=== PATIENT | male | born 1995 | race Asian ===

== ENCOUNTER 2017-03-24 03:20 | Emergency (ER) | payer OTHER ==
[~2017-03-24] VITALS: Ht 171.5 cm; Wt 56.5 kg
[2017-03-24 03:30] VITALS: Ht 171.5 cm; Wt 56.5 kg
[2017-03-24] MEDS ORDERED: ACETAMINOPHEN 500 MG TAB PO STA (03:36)
[2017-03-24] MEDS ORDERED: IBUPROFEN 800 MG TAB PO STA (03:36)
[2017-03-24 04:18] LABS: INFLUENZA B ANTIGEN Neg for Influ B (NEG)
--- NOTE | 2017-03-24 04:33 | EMERGENCY ROOM VISIT NOTE ---
History First contact with patient: 03:35 Chief Complaint: FEVER Stated Complaint: HEADACHE HIGH TEMP History of Present Illness The patient is a 21 year old male who presents to the Emergency Room with complaints of fever, chills, body aches and pains and headache for the past 2 days. Patient returned from [place] March 08. He did not receive his flu vaccine. He's been taking [place] herbal medicines. No Tylenol or Motrin. Patient denies chest pain, dyspnea, cough, sore throat, neck stiffness, abdominal pain, vomiting, diarrhea. He is tolerated by mouth fluids and food. Review of Systems See HPI for pertinent positives & negatives. A total of 10 systems reviewed and were otherwise negative. Past Medical/Surgical History None Social History Smoking Status: Current Every Day Smoker Alcohol Use: occasionally Drug Use: none Occupation Status: [employer] student Current/Historical Medications No Active Prescriptions or Reported Meds Physical Exam Vital Signs Date Time Temp Pulse Resp B/P (MAP) Pulse Ox O2 Delivery O2 Flow Rate FiO2 03/24/17 03:30 39.0 129 20 138/84 96 Room Air Physical Exam VITALS: Vitals are noted on the nurse's note and reviewed by myself. Vital signs febrile GENERAL: Pleasant male, in no acute distress, nondiaphoretic, well-developed well-nourished. SKIN: The skin was without rashes, erythema, edema, or bruising. There is no tenting of the skin. Capillary reflex less than 2 seconds. HEAD: Normocephalic atraumatic. EARS: External auditory canals clear, tympanic membranes pearly rivera without erythema or effusion bilaterally. EYES: Pupils equal round and reactive to light and accommodation. Conjunctivae without injection, sclerae without icterus. Extraocular movements intact. NOSE: Patent, turbinates without inflammation or discharge. No sinus tenderness. MOUTH: Mucous membranes mildly dry. Pharynx without erythema or exudate. Uvula midline. Airway patent. Tongue does not deviate. NECK: Supple without nuchal rigidity. No lymphadenopathy. No thyromegaly. Cervical spine is nontender. No JVD. No meningeal signs HEART: Regular rate and rhythm without murmurs gallops or rubs. LUNGS: Clear to auscultation bilaterally without wheezes, rales or rhonchi. No dullness to percussion. No retractions or accessory muscle use. ABDOMEN: Positive bowel sounds x 4. Normal tympanic percussion. Soft, nontender, without masses or organomegaly. Tomlin sign negative. No guarding or rebound tenderness. MUSCULOSKELETAL: No muscle atrophy, erythema, or edema noted. NEURO: Patient was alert and oriented to person place and time. Normal sensation to light and sharp touch. No focal neurological deficits. Medical Decision & Procedures Laboratory Results Test 03/24/17 03:48 Influenza Type A Antigen Neg for Influ A (NEG) Influenza Type B Antigen Neg for Influ B (NEG) Medications Administered Medications (Trade) Dose Ordered Sig/Joanne Route Start Time Stop Time Status Last Admin Dose Admin Acetaminophen (Tylenol Tab) 1,000 mg NOW STAT PO 03/24/17 03:36 03/24/17 03:37 DC 03/24/17 03:52 1,000 MG Ibuprofen (Motrin Tab) 800 mg NOW STAT PO 03/24/17 03:36 03/24/17 03:37 DC 03/24/17 03:52 800 MG ED Course Prior records/ancillary studies reviewed. Triage Nursing notes reviewed. The patient's history was concerning for fever. Differential diagnosis: Etiologies such as viral syndrome, otitis, pharyngitis, pneumonia, influenza, meningitis, urinary tract infection, sepsis, bacteremia, as well as others were entertained. Physical examination: Patient is alert and tolerating fluids ER treatment provided: Tylenol, Motrin, Gatorade On reassessment the patient felt better. Diagnostics interpreted by me: neg influenza and Strep This appears to be consistent with influenza like illness. Patient was neurovascularly and neurologically intact. He felt better after he was medicated as above. He is advised to rest, stay well-hydrated and take medications as directed. He is advised to follow-up health services in a few days or here in the ER sooner for high fevers, lethargy, neck stiffness, worsening signs or symptoms or as needed. Patient had no signs of meningitis. He was advised to stay at home until he is 24 hours fever free as he is contagious. He was encouraged to quit smoking.. By the evaluation outlined above emergent etiologies such as otitis, pharyngitis, pneumonia, meningitis, urinary tract infection, sepsis, bacteremia, as well as others were deemed relatively unlikely. The pt informed about the findings as listed above. All questions were answered and pleased with the treatment. Return instructions were outlined and the patient was discharged in stable condition. Referral: The patient was referred back to their primary care physician/[facility] for follow-up in 2 to 3 days for a recheck of the current condition. Medical Decision As above Medication Reconcilliation Current Medication List: was personally reviewed by me Blood Pressure Screening Patient's blood pressure: Normal blood pressure Impression Primary Impression: Influenza Departure Information Dispostion Home / Self-Care Condition GOOD Prescriptions No Active Prescriptions or Reported Meds Referrals [facility] (PCP) Patient Instructions My [facility] Additional Instructions Acetaminophen(Tylenol) may be used for fever or pain. Use 1000mg every six hours as needed. Avoid using more than 3000mg in a 24 hour period. (AND/OR) Ibuprofen(Motrin, Advil) may be used for fever or pain. Use 600mg every six hours as needed. Take with food. Avoid using more than 2400mg in a 24 hour period. Do not use 2400mg per day for more than three consecutive days without physician direction. Prolonged inappropriate use can lead to stomach upset or ulcers. Afrin nasal spray: 2-3 sprays to each nostril twice daily as needed for congestion. Do not use for more than 3-4 days because it can lead to worsening rebound congestion. Pseudoephedrine(Sudaphed): 30-60mg every 6 hours as needed for nasal congestion. Do not take this with other stimulant products or supplements. Rest and drink plenty of fluids. Controlling your fever with Tylenol and Ibuprofen as above will make you feel better. Wash your hands after nose blowing, sneezing, or coughing. Most germs are spread through contact, therefore improper hygiene may result in your close contacts and loved ones becoming ill just like you. Continue current medications. Return to the ER for severe headache, neck stiffness, chest pain, difficulty breathing, fevers, vomiting, worsening of your condition, or as needed. Follow up with your primary physician this week for a recheck of your current condition.
[2017-03-24 05:02] VITALS: BP 134/81; PULSE 97; TEMP 38.6; O2SAT 99
== END 2017-03-24 05:03 | disposition home or self-care (01) ==
LOC: C.EDB 03:24 → C.EDA 05:03
DX: J11.1 Influenza due to unidentified influenza virus with other respiratory manifestations (principal); F17.200 Nicotine dependence, unspecified, uncomplicated

== ENCOUNTER 2017-06-19 08:38 | Emergency (ER) | payer OTHER ==
[2017-06-19 08:48] VITALS: TEMP 36.4
--- NOTE | 2017-06-19 11:47 | EMERGENCY ROOM VISIT NOTE ---
History First contact with patient: 09:03 Chief Complaint: HIV TESTING Stated Complaint: HIV BLOOD TEST Nursing Triage Summary: pt had unprotected sex, has been doing home HIV testing. wants lab test done History of Present Illness Patient is a 22-year-old male who presents the emergency department requesting HIV blood test. Patient reports that he had unprotected intercourse in February 2017. Subsequently, he developed an influenza-like illness and was hospitalized here. He developed a multifocal pneumonia and was in the ICU. It is noted that a rapid HIV performed while he was admitted was negative. Patient reports that he has been performing home oral swab HIV testing weekly since discharge. He is now greater than 12 weeks from the sexual encounter. All of his tests have been negative. Yesterday he took an additional test which was very faintly positive, then did a subsequent test which was negative. Patient spoke with [facility] regarding confirmatory testing and was told that it would take 2 weeks for the test results to come back, he presented here because he was told that he could get the results today. He otherwise has no complaints. Review of Systems Review of systems as per HPI. All other systems reviewed were negative. 10 systems reviewed. Past Medical/Surgical History Medical Problems: (1) Acute hypoxemic respiratory failure (2) ARDS (adult respiratory distress syndrome) (3) Influenza (4) No significant past medical history (5) Pneumonia (6) Thrombocytopenia Surgical Problems: (1) No significant past surgical history Social History Problems: (1) [place] ancestry Electronic medical records are reviewed and summarized as above/below. See Problem List. Social History Smoking Status: Former Smoker Alcohol Use: occasionally Drug Use: none Occupation Status: [employer] student Current/Historical Medications No Active Prescriptions or Reported Meds Physical Exam Vital Signs Date Time Temp Pulse Resp B/P (MAP) Pulse Ox O2 Delivery O2 Flow Rate FiO2 06/19/17 12:11 101 16 122/59 98 Room Air 06/19/17 08:48 36.4 118 20 130/73 98 Room Air Physical Exam CONSTITUTIONAL: Patient is a well-appearing 22-year-old male who is awake and alert and in no acute distress. SKIN: No lesions or rash, normal skin turgor. NEUROLOGICAL: Alert, oriented, and cooperative. Cranial nerves, sensation and strength grossly intact. Normal gait. Medical Decision & Procedures Laboratory Results Test 06/19/17 10:03 HIV (1&2) Ab and P24 Ag, 4th Gener NEG (NEG) ED Course The patient was seen and assessed as above his old records were reviewed. Limitations of the HIV testing was discussed with him, in addition to need for follow-up, and he did desire to proceed with testing here. A serum HIV test was run and was negative. A copy of the patient's test results were given to him. He was advised to follow-up with [facility] for further care and testing if needed. Patient was discharged home in good condition with no questions. Medical Decision See ED Course. Medication Reconcilliation Current Medication List: was personally reviewed by me Blood Pressure Screening Patient's blood pressure: Normal blood pressure Blood pressure disposition: Did not require urgent referral Impression Primary Impression: Encounter for blood test Departure Information Prescriptions No Active Prescriptions or Reported Meds Referrals No Doctor, Assigned (PCP) Patient Instructions My [facility] Additional Instructions Follow up with [facility] for further care and testing if needed.
[2017-06-19 12:11] VITALS: BP 122/59; PULSE 101; O2SAT 98
== END 2017-06-19 12:12 | disposition home or self-care (01) ==
LOC: C.EDB 08:40
DX: Z20.6 Contact with and (suspected) exposure to human immunodeficiency virus [HIV] (principal); Z87.891 Personal history of nicotine dependence